=== PATIENT | female | born 1985 | race Caucasian/White ===

== ENCOUNTER 2022-10-26 13:45 | Outpatient (CLI) | payer OTHER, SELFPAY | END 2022-10-26 13:46 | disposition home or self-care (01) | LOC: RAD 13:46 | PROVIDERS: PCP Family Medicine; Visit Provider Internal Medicine | DX: I47.1 Supraventricular tachycardia (principal); I35.1 Nonrheumatic aortic (valve) insufficiency; I34.0 Nonrheumatic mitral (valve) insufficiency | CPT/HCPCS: 93306 ==

== ENCOUNTER 2023-12-08 13:32 | Outpatient (CLI) | payer OTHER, SELFPAY | END 2023-12-08 13:33 | disposition home or self-care (01) | PROVIDERS: PCP Family Medicine; Visit Provider Physician Assistant | DX: E78.5 Hyperlipidemia, unspecified (principal); Z13.29 Encounter for screening for other suspected endocrine disorder | CPT/HCPCS: 80061; 84443 ==

== ENCOUNTER 2024-12-08 10:17 | Outpatient (CLI) | payer OTHER, SELFPAY | END 2024-12-08 10:18 | disposition home or self-care (01) | PROVIDERS: PCP Family Medicine; Visit Provider Physician Assistant | DX: Z00.01 Encounter for general adult medical examination with abnormal findings (principal); E78.5 Hyperlipidemia, unspecified; I47.19 Other supraventricular tachycardia; Z13.21 Encounter for screening for nutritional disorder | CPT/HCPCS: 80053; 80061; 82306; 82728; 84443 ==

== ENCOUNTER 2024-12-14 09:41 | Outpatient (CLI) | payer OTHER, SELFPAY | END 2024-12-14 09:42 | disposition home or self-care (01) | LOC: NFLDREF 09:42 | PROVIDERS: PCP Family Medicine; Visit Provider Physician Assistant | DX: I47.10 Supraventricular tachycardia, unspecified (principal) | CPT/HCPCS: 82728; 83540; 83550 ==

== ENCOUNTER 2024-12-28 14:24 | Outpatient (CLI) | payer OTHER, SELFPAY | END 2024-12-28 14:25 | disposition home or self-care (01) | PROVIDERS: PCP Family Medicine; Visit Provider Family Medicine | DX: R79.89 Other specified abnormal findings of blood chemistry (principal); I10 Essential (primary) hypertension; E66.9 Obesity, unspecified; N91.2 Amenorrhea, unspecified; I47.10 Supraventricular tachycardia, unspecified | CPT/HCPCS: 81256; 82239; 82728 ==

== ENCOUNTER 2025-01-10 06:17 | Outpatient (CLI) | payer OTHER, SELFPAY | END 2025-01-10 06:18 | disposition home or self-care (01) | LOC: NFLDREF 06:18 | PROVIDERS: PCP Family Medicine; Visit Provider Family Medicine | DX: R39.11 Hesitancy of micturition (principal) | CPT/HCPCS: 87086 ==